=== PATIENT | female | born 1985 | race Asian ===

== ENCOUNTER 2016-05-19 22:17 | Emergency (ER) | payer OTHER ==
[~2016-05-19] VITALS: Ht 165.1 cm; Wt 51.7 kg
[2016-05-19 22:45] VITALS: BP 143/85
[2016-05-19 23:20] VITALS: BP 143/85
--- NOTE | 2016-05-20 04:45 | Emergency Room Report ---
History of Present Illness General Chief Complaint: General Complaint Source: Patient Present Illness HPI 30-year-old female presents to ED for STD checkup. Patient is her with boyfriend states that they want to be checked for STDs. Denies any complaints at this time. Denies any dysuria or hematuria. Denies any discharge. Patient states this is a routine checkup. No other aggravating or relieving factors. Denies any other associated symptom Allergies: Coded Allergies: No Known Allergies (Unverified , 05/19/16) Patient History Past Medical History: none Past Surgical History: none Pertinent Family History: none Social History: Denies: alcohol use, drug use, smoking Last Menstrual Period: 04/21/16 Now: No Immunizations: UTD Reviewed Nursing Documentation: PMH: Agreed, PSxH: Agreed Nursing Documentation-PMH Past Medical History: No Stated History Review of Systems All Other Systems: negative except mentioned in HPI Physical Exam Vital Signs Date Time Temp Pulse Resp B/P Pulse Ox O2 Delivery O2 Flow Rate FiO2 05/19/16 22:23 98.4 89 16 143/85 100 Room Air Sp02 EP Interpretation: reviewed, normal General Appearance: no apparent distress, alert, GCS 15, non-toxic Head: normocephalic, atraumatic Eyes: bilateral eye PERRL, bilateral eye normal inspection ENT: hearing grossly normal, normal pharynx, no angioedema, normal voice Neck: full range of motion, supple/symm/no masses Respiratory: chest non-tender, lungs clear, normal breath sounds, speaking full sentences Cardiovascular #1: regular rate, rhythm, no edema Cardiovascular #2: 2+ carotid (R), 2+ carotid (L), 2+ radial (R), 2+ radial (L) , 2+ dorsalis pedis (R), 2+ dorsalis pedis (L) Gastrointestinal: normal bowel sounds, non tender, soft, non-distended, no guarding, no rebound Rectal: deferred Genitourinary: normal inspection, no CVA tenderness Musculoskeletal: back normal, gait/station normal, normal range of motion, non- tender Neurologic: alert, oriented x3, responsive, motor strength/tone normal, sensory intact, speech normal Psychiatric: judgement/insight normal, memory normal, mood/affect normal, no suicidal/homicidal ideation Reflexes: 3+ bicep (R), 3+ bicep (L), 3+ tricep (R), 3+ tricep (L), 3+ knee (R) , 3+ knee (L) Skin: normal color, no rash, warm/dry, well hydrated Lymphatic: no adenopathy Medical Decision Making Diagnostic Impression: Primary Impression: Concern about STD in female without diagnosis ER Course 30-year-old female presents ED for STD checkup. No complaints Differential-gonorrhea, Chlamydia, syphilis Patient placed on stretcher. After initial history and physical I discussed with patient that we are not an STD clinic and routine STD testing is not indicated from the emergency room. Patient should go to a STD clinic during normal business hours. Patient states she did know and will go to an STD clinic in the future. Agreed to provide some testing at this time but explained that this is not comprehensive given that patient has no symptoms at this time GC sent and pending. RPR sent and pending. Rapid HIV negative Patient informed to call medical records a few days for her results but to followup with STD clinic from now on Diagnosis-concern for STD and female without diagnosis Stable and discharged to home. Followup with PMD/STD clinic. Return to ED if symptoms recur or worsen Last Vital Signs Date Time Temp Pulse Resp B/P Pulse Ox O2 Delivery O2 Flow Rate FiO2 05/19/16 23:20 98.4 89 16 143/85 100 Room Air Disposition: HOME, SELF-CARE Condition: Stable Patient Instructions: Sexually Transmitted Disease, Imek-ul-Blus EMMIE MAS M.D. May 20, 2016 04:45
== END 2016-05-19 23:20 | disposition home or self-care (01) ==
LOC: EMR 22:51
DX: Z11.3 Encounter for screening for infections with a predominantly sexual mode of transmission (principal)
CPT/HCPCS: 86592; 86703; 87590; 99283